=== PATIENT | male | born 1970 | race Two or more races ===

== ENCOUNTER 2024-03-04 23:43 | Emergency (ER) | payer MEDICARE, SELFPAY ==
[2024-03-04 23:47] VITALS: BP 138/84; PULSE 94; TEMP 36.4; O2SAT 100
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
--- NOTE | 2024-03-05 00:27 | CT_ITS ---
The [address] [address] Patient Name: TRAMAINE JOY MRN: [id number] date: 1970 Sex: M Assigned Patient Location: ER Current Patient Location: ER Accession/Order Number: [id number] Exam Date: 03/05/2024 01:45 Report Date: 03/05/2024 01:23 At the request of: ESME SIMPSON Procedure: CT lumbar spine wo con EXAM: CT lumbar spine wo con HISTORY: pain/fall COMPARISON: None. TECHNIQUE: Unenhanced CT imaging of the lumbar spine. This CT exam was performed using one or more of the following dose reduction techniques: Automated exposure control, adjustment of the mA and/or KV according to patient size, or use of iterative reconstruction technique. Unless otherwise stated, incidental findings do not require dedicated follow-up imaging. FINDINGS: The lumbar vertebrae are normal in height and alignment. There is no fracture. The facet joints are aligned bilaterally. The intervertebral disc spaces are preserved bilaterally. CT/CT lumbar spine wo con IMPRESSION: No acute abnormality. Electronically authenticated by: DESIREE NORRIS Date: 03/05/2024 01:23
--- NOTE | 2024-03-05 00:27 | CT_ITS ---
The [address] [address] Patient Name: TRAMAINE JOY MRN: [id number] date: 1970 Sex: M Assigned Patient Location: ER Current Patient Location: .[facility] Accession/Order Number: [id number] Exam Date: 03/05/2024 01:45 Report Date: 03/05/2024 01:21 At the request of: ESME SIMPSON Procedure: CT cervical spine wo con CT cervical spine wo con 03/05/2024 12:45 AM CDT: History: pain Neck Pain Comparison: None. Technique: Unenhanced CT imaging of the cervical spine. This CT exam was performed using one or more of the following dose reduction techniques: Automated exposure control, adjustment of the mA and/or KV according to patient size, or use of iterative reconstruction technique. Findings: The cervical vertebral bodies maintain normal height and alignment. There is no fracture or dislocation. The prevertebral soft tissues and predental space are normal. The facet joints are aligned bilaterally. The atlantooccipital articulation is normal bilaterally. There is multilevel degenerative disc disease of the cervical spine. CT/CT cervical spine wo con Impression: 1. No acute abnormality of the cervical spine. Electronically authenticated by: DESIREE NORRIS Date: 03/05/2024 01:21
[2024-03-05] MEDS: MAGNESIUM SULFATE IN WATER 2 GM/50 ML PREMIX IV (01:04)
[2024-03-05] MEDS: METHYLPREDNISOLONE SOD SUCC PF 125 MG/2 ML VIAL IVP (01:07)
[2024-03-05] MEDS: ORPHENADRINE 60 MG/ 2 ML VIAL IV (01:07)
[2024-03-05 01:21] LABS: Basophils Absolute Auto 0.1 10^3/uL (0.0-0.1); Basophils Percent Auto 0.6 % (0.2-2.0); Eosinophils Absolute Auto 0.1 10^3/uL (0.0-0.7); Eosinophils Percent Auto 1.6 % (0.9-7.0); Hematocrit 40.1 % (42.0-54.0); Hemoglobin 13.4 g/dL (14.0-18.0); Immature Granulocytes Abs Auto 0.02 10^3/uL (0.00-0.03); Immature Granulocytes Pct Auto 0.3 % (0.0-0.5); Lymphocytes Absolute Auto 2.7 10^3/uL (1.2-3.8); Lymphocytes Percent Auto 34.2 % (20.5-60.0); Mean Corpuscular HGB Conc 33.4 g/dL (29.9-35.2); Mean Corpuscular Volume 89.9 fL (80.0-94.0); Monocytes Absolute Auto 0.6 10^3/uL (0.3-0.8); Monocytes Percent Auto 7.3 % (1.7-12.0); Neutrophils Absolute Auto 4.4 10^3/uL (1.4-6.5); Platelet Count 302 10^3/uL (150-450); Red Blood Count 4.46 10^6/uL (4.70-6.10); Red Cell Distribution Width 12.3 % (11.0-15.0); White Blood Count 7.9 10^3/uL (4.0-11.0)
[2024-03-05 01:26] LABS: Erythrocyte Sedimentation Rate 22 mm/hr (<=20)
[2024-03-05 01:32] LABS: Anion Gap 13.2; BUN Creatinine Ratio 11.1; C Reactive Protein <0.50 mg/dL (<=0.50); Carbon Dioxide 27.2 mmol/L (21.0-32.0); Chloride 103 mmol/L (98-107); Estimated GFR (African America >60 (>=60); Estimated GFR (Non-African Ame >60 (>=60); Glucose 104 mg/dL (74-106); Potassium 3.4 mmol/L (3.5-5.1); Sodium 140 mmol/L (136-145)
[2024-03-05 01:44] VITALS: PULSE 88
[2024-03-05 02:30] VITALS: BP 137/87; PULSE 78; O2SAT 97
== END 2024-03-05 02:30 | disposition home or self-care (01) ==
PROVIDERS: Emergency Provider Internal Medicine; PCP Family Medicine
DX: S16.1XXA Strain of muscle, fascia and tendon at neck level, initial encounter (principal); S39.012A Strain of muscle, fascia and tendon of lower back, initial encounter; W19.XXXA Unspecified fall, initial encounter
CPT/HCPCS: 36415; 72125; 72131; 80048; 85025; 85652; 86140; 96365; 96375; 99285; J2919

== ENCOUNTER 2024-03-08 15:54 | Emergency (ER) | payer MEDICARE, SELFPAY ==
[2024-03-08 15:56] VITALS: BP 135/92; PULSE 99; TEMP 37.2; O2SAT 100; BMI 30.6
--- NOTE | 2024-03-08 15:57 | CT_ITS ---
The [address] [address] Patient Name: TRAMAINE JOY MRN: [id number] date: 1970 Sex: M Assigned Patient Location: ER Current Patient Location: ER Accession/Order Number: [id number] Exam Date: 03/08/2024 16:40 Report Date: 03/08/2024 17:13 At the request of: NATTY DE SOUZA Procedure: CT head/brain wo con EXAM: CT head/brain wo con HISTORY: Altered mental status. TECHNIQUE: Axial CT scans through the head were obtained without IV contrast administration. Dose reduction techniques were achieved by using: automated exposure control and/or adjustment of mA and /or kV according to patient size and/or the use of an iterative reconstruction technique. COMPARISON: None. FINDINGS: The cerebral hemispheres have normal white and neves matter and corticomedullary differentiation. To the limit of CT, the posterior fossa appears unremarkable. The ventricular system and cortical sulci are normal for the patient's age. No area of abnormal mass-effect or edema or intracranial hemorrhage. The visualized orbits show no abnormal mass. The visualized paranasal sinuses show no air-fluid level. Mastoid air cells are clear. CT/CT head/brain wo con IMPRESSION: No acute intracranial process. Electronically authenticated by: NICOLAS BABB Date: 03/08/2024 17:13
--- NOTE | 2024-03-08 15:57 | ECG_ITS ---
The [facility] Test Date: 2024-03-08 Pat Name: TRAMAINE JOY Department: Room: - Gender: Male Membership Administrator: : 1970 Requested By: MAISHA WALTER Order Number: [id number] Reading MD: ALESHA MICHELLE Measurements Intervals [place] Rate: 89 P: 55 CO: 138 QRS: 96 QRSD: 88 T: 65 QT: 346 QTc: 393 Interpretive Statements 1100 Sinus rhythm 7102 Moderate right axis deviation 9110 normal ECG Compared to ECG 01/19/2017 15:17:40 No significant changes Electronically Signed On 03-13-2024 9:45:53 EDT by ALESHA MICHELLE
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
[2024-03-08] MEDS: 0.9 % SODIUM CHLORIDE 1,000 ML 999 ML IV (16:21)
--- OUTSIDE RECORDS SUMMARY | 2024-03-08 16:23 | XMS_ITS | CCD ---
Author Organization [facility] [employer] [facility] [employer] [employer] Care Team Providers Care [employer] English Teacher Name Role Phone OLE MCCRAY Unavailable Unavail able REJI FRANKLIN Unavailable Unavailable DIMITRIOS MEDINA Unavailable Unavailable MAISHA WALTER Attending Unavailable MAISHA WALTER Admitting Unavailable DR IRMA PETERSEN Admitting Unavailable MAISHA WALTER Primary Care Unavailable DR IRMA PETERSEN Attending Unavailable Allergies Allergy Classification Reported Allergen(s) Allergy Type Date of Onset Reaction(s) Facility (1 source) Seasonal allergy; Translations: [SEASONAL ALLERGIES] Propensity to adverse reactions (disorder) [facility] Problems Active Problems Problem Classification Problem Date Documented Da te Episodic/Chronic Gastrointestinal hemorrhage (1 source) Hemorrhage of anus and rectum; Translations: [Hemorrhage of anus and rectum] Onset: 07-07-2018 Episodic Other nervous system disorders (1 source) Other chronic pain; Translations: [OTHER CHRONIC PAIN] Onset: 06-17-2020 Chronic Past or Other Problems Problem Classification Problem Date Documented Da te Episodic/Chronic Spondylosis; intervertebral disc disorders; other back problems (4 sources) Dorsalgia, unspecified; Translations: [DORSALGIA UNSPECIFIED] Onset: 05-29-2020 Episodic Results Test Name Value Interpretation Reference Range [facility] HNO ID: [id number] thor: Virginia (Rn) SALIMA Martinezervice: Care ManagementAuthor Type: Registered NurseType: Care Mgt Progress NoteFiled: 07/10/2018 10:01 AMNote Text:CARE MANAGEMENT: ASSESSMENT AND DISCHARGE PLANSERVICE DATE: 07/10/2018SERVICE TIME: 9:56 AMPRIMARY CARE PHYSICIAN:SHIRA Romerohone: [phone] STATUS: InpatientMEDICAL:Patient/Represe ntative Stated Goals:To have reduction in symptomsTo return home to life as it wasHealth Insurance: MEDICARE A AND BNoneHealth Issues Impacting Discharge Plan: Chronic bowel issuesLast Admission Date: Previous admit date: 05/01/2017Is this Within the Past 30 days? NoAdvance Directive:Current Advance Directive: NoneCare [facility] Psychiatrist Attempted to Assist with AD Completion: YesAction: Education Provided;Patient UnwillingHealth Literacy:1. How often do you need to have someone help you when you readinstructions, pamphlets, or other written material from your doctor orpharmacy? Never - 12. How confident are you filling out medical forms by yourself? Extremely- 1If Patient scores > 3 on either question, the following interventions wereput into place:Patient did not score > 3FUNCTIONAL AND COGNITIVE/BEHAVIORALPRIOR TO ADMISSION:Baseline Mental Status: Alert AND Oriented, Person, Place , Time andSituationFunctional Status: IndependentDoes Patient Currently Receive Any Community Services or Home Care? NoneEquipment Prior to Admission: NoneHas the Patient Been in a Halfway Facility in the Past 30 days? NoSOCIAL:Living Arrangement: HomeLives With: Mother and FatherFinancial Resources: DisabledPrimary Contact: Extended Emergency Contact InformationPrimary Emergency Contact: Micky Joyddress: [address] [place] [address] [facility] Xngcvdfl: MotherSupportive: YesOther Important Patient Contacts: NoneCaregiver Assessment:Caregiver is ready, willing and able to meet the patient's needs asrecommended by the inter-professional team? No Caregiver NeededPatient's transition needs and plan for meeting these needs: yesDoes the patient have an acute stroke diagnosis, or has the patient had astroke during this admission? NoMedication Adherence:Pt reports he doesn't take any prescription medicationsAre you interested in bedside delivery of your medications? YesFood Concerns:In the Last Month, Have You had Trouble Getting Food? No trouble gettingfoodDuring the Last Month, Have You Worried Whether Your Food Would Run OutBefore You Had Enough Money to Buy More? NoIs the Patient Psychosocially Complex? NoASSESSMENT AND PLAN:Medical Needs: NonePsychosocial Needs: NoneFREEDOM OF CHOICE EXPLAINED:N/APOTENTIAL TRANSITION PLANSNo Services IndicatedPt from home independently. No needs anticipated.Multidisciplinary rounds occurred this AM.SIGNATURE: Virginia Martinez RN PATIENT NAME: Tramaine Joy JRDATE: July 10, 2018 : 9:55 AM PAGER/CONTACT #: [phone] Normal [facility] CBC and Differentialon 07-10 Abs Baso 0.04 k/uL Normal <0.11 [facility] Abs Motley 0.58 k/uL Normal <0.87 [facility] Abs Neut 3.61 k/uL Normal 1.45-7.50 [facility] Absolute nRBC <0.01 Normal <0.01 [facility] Basophils/100 WBC Auto (Bld) 0.5 % Normal [facility] DTYPE Auto Diff Normal [facility] Eosinophils Auto #/vol (Bld) 0.19 10*3/uL Normal <0.46 [facility] Eosinophils/100 WBC Auto (Bld) 2.6 % Normal [facility] Erythrocyte distribution width Auto Ratio (RBC) 12.3 % Normal 11.5-15.0 [facility] Hematocrit Auto Volume Fraction (Bld) 39.9 % Normal 39.0-51.0 [facility] Hemoglobin mass conc (Bld) 14.0 g/dL Normal 13.0-17.0 [facility] Lymphocytes Auto #/vol (Bld) 2.86 10*3/uL Normal 1.00-4.00 [facility] Lymphocytes/100 WBC Auto (Bld) 39.2 % Normal [facility] MCH Auto Entitic mass (RBC) 31.0 pG Normal 26.0-34.0 [facility] MCHC Auto mass conc (RBC) 35.1 g/dL Normal 30.5-36.0 [facility] MCV Auto Entitic volume (RBC) 88.3 fL Normal 80.0-100.0 [facility] Monocytes/100 WBC Auto (Bld) 8.0 % Normal [facility] Neutrophils/100 WBC Auto (Bld) 49.7 % Normal [facility] NRBCs 0.0 /100 WBC Normal 0 [facility] Platelet mean volume Auto Entitic volume (Bld) 10.3 fL Normal 9.0-12.7 [facility] Platelets Auto #/vol (Bld) 297 10*3/uL Normal 150-400 [facility] RBC Auto #/vol (Bld) 4.52 10*6/uL Normal 4.20-6.00 [facility] WBC Auto #/vol (Bld) 7.29 10*3/uL Normal 3.70-11.00 [facility] CNDSon 07-10-2018 CNDS HNO ID: [id number] thor: Con[place] ([place]) WaiteService: [facility] MedicineAuthor Type: Physician AssistantType: Discharge SummariesFiled: 07/10/2018 1:42 PMNote Text: Attestation signed by Dimitrios Medina at 07/11/2018 12:[address] PMAgree.Dimitrios Medina, [facility] ARROWeptember 2017 12:40 PM DISCHARGE SUMMARYPATIENT NAME: Tramaine Joy JR ADMISSION DATE: 07/07/2018MRN: [id number] DISCHARGE DATE: 07/10/2018Attending Physician: Dimitrios Medina Code Status: Not on fileHighest Readmission Risk Score: 11 The 30 day readmissions risk score is derived from an internallyvalidated risk model which evaluates patient level characteristics,utilization history, medication orders and lab results up until the day ofdischarge. Patients with a score of 40 or above are considered highestrisk for readmission. Specific patient level drivers will be listed at thebottom of the summary.Reason for Hospitalization: GI bleedDiagnosis: Principal Problem (Resolved): Rectal bleedActive Problems: * No active hospital problems. *Hospital Course as Described to the Patient:You were admitted for GI bleed. You presented with blood in your stools.Testing for infectious sources in your stool were negative. Yourhemoglobin levels were monitored and dropped slightly, but not to asignificant level. Once the bleeding slowed down, your hemoglobin returnedto your baseline level. You were treated with Protonix, an acid reducingmedication, in case the source of bleeding was from your upper GI tract.You were evaluated by Gastroenterology who felt you were clear fordischarge and they will call you to schedule a follow up appointment. Youwill be prescribed a short course of Protonix. It is recommended todiscontinue Advil PM, as this can irritate the lining in your stomach.Transitions of Care Critical Issues:SPECIALIST FOLLOW-UP: Colorectal surgery, GIKEY MEDICATION CHANGES: Protonix 40 mg daily x 2 weeksLABS AND PROCEDURES PENDING AT DISCHARGE: Test Results Not Yet Availablefrom This Hospitalization: Please Review atYour Follow Up Appointment None No pending results.Additional Provider to Provider Information:GI Bleed-Patient with hx of diverticular perforation in 2014 with colostomy thenileostomy s/p reversal in 05/02presented after having multiple dark redloose stools with clots. He was started on Protonix IV and referred to obsunit. CBC showed slight drop from his baseline at 14 to ~12. Vitalsremained stable. C. Diff and Enteric bacterial panel negative. He wasevaluated by GI. Bleeding and loose stools began to slow down and he wasstarted on GI soft diet which he tolerated. GI recommended to follow upwith his colorectal surgeon for further evaluation and possiblycolonoscopy. He will also be contacted to f/u with GI and Colorectalsurgery. He was prescribed Protonix on discharge. Advised to discontinueAdvil PM which he had been taking nightly.Operations During Hospitalization: NoneProcedures During Hospitalization: No procedures performedConsulting Teams During Hospitalization:Treatment Team:Attending Provider: Dimitrios Walker GradyConsulting: Bashir IssaConsulting: Osmar Mendez BladesConsulting: Reji Campos Condition @ Discharge: StableDischarge Disposition: Home/Self CareDischarge Physical Exam:VITAL SIGNS: BP 131/79 Pulse 86 Temp 36.7 ?C (98.1 ?F) (Oral) Resp 16 Ht 167.6 cm (5' 6 ) Wt 79.1 kg (174 lb 6.1 oz) SpO2 97% BMI 28.15 kg/m?GENERAL: Alert, no distress, cooperativeSKIN: Skin color, texture, turgor normal. No rashes or lesions.HEAD/SINUSES: Atraumatic, normocephalic.EYES: PERRLA, EOMIOROPHARYNX: Lips, mucosa, and tongue normal. Teeth and gums normal.Oropharynx normal.LUNGS: Lungs clear to auscultation, Good diaphragmatic excursionCARDIAC: Normal S1 and S2; no rubs, murmurs, or gallopsABDOMEN: Abdomen soft, non-tender, BS normal, No masses or organomegalyEXTREMITIES: Extremities normal, no deformities, edema, clubbing or skindiscoloration. Good capillary refill., No ulcersNEURO: Grossly normal cognition, motor function, and cranial nervesIII-XII, Sensation grossly intact.PULSES: 2+ radial, 2+ dorsalis pedisInformation Provided to Patient: d/c instructionsDiet: Resume pre-hospital dietActivity: Resume pre-hospital activityWound/Surgical Site Care:ALLERGIESAllergen Reactions- Seasonal Allergies CoughDischarge Medications: Current Discharge Medication ListSTART taking these medicationspantoprazole DR (PROTONIX) 40 mgTake 40 mg by mouth once daily.Qty: 14 tablet Refills: 0CONTINUE these medications which have NOT CHANGEDdicyclomine (BENTYL) 20 mgTake 20 mg by mouth three times daily as needed (abdominal pain).Qty: 30 tablet Refills: 0acetaminophen (TYLENOL) 325-650 mgTake 325-650 mg by mouth every 4 hours as needed.Refills: 0Future Appointments:No future appointments.Follow Up Appointments Follow-Up Appointment With: You will be contacted for a follow up appointment with GI. When: In:Appointments for Next 45 Days NoneThe patient's risk for 30-day readmission is determined using thefollowing contributing factors:Pt variables contributing to increased readmission risk: 14 Most Recent BUN Result 8.8 First Resulted Calcium During Admission 5 Active Medication Orders 1 Previous ED Visit (6 mos.)? 1 Number of Previous ED Visits (6 mos.) 1 Insurance - Medicare 1 History of AnemiaTIME OF CARE: Discharge Management: I personally spent greater than 30minutes involved in the discharge management of this patient.SIGNATURE: Yael Bach PA-C PATIENT NAME: Tramaine Joy JRDATE: July 10, 2018 : 10:20 AM PAGER/CONTACT #: [phone] [facility] NURSING PROGon 07-10-2018 Protein mass conc HNO ID: [id number] thor: Millicent (Rn) Malika, RNService: (none)Author Type: Registered NurseType: Nursing Progress NoteFiled: 07/10/2018 10:44 AMNote Text: Nursing Progress NotePatient Name: Tramaine Joy JRMRN: [id number] [id number] Daily Note: Estefani HARTMANN MULTIMEDIA PROGRAMMER called to check on pt, update provided, pttolerating diet well but would like to have BM prior to d/c. OK to d/c tohome per GI and f/u with GI/colorectal sx.This note was completed by: Millicent Daly RN [facility] PLAN OF CAREon 07-10-2018 PLAN OF CARE HNO ID: [id number] thor: Mirela Abbasi (Explosive Man)Service: (none)Author Type: TechnicianType: Plan of CareFiled: 07/10/2018 3:16 PMNote Text:PHARMACY BEDSIDE DELIVERY SERVICEPatient Name: Tramaine Joy JRMRN: [id number] marked outpatient medications were Filled at: [place] and delivered tothe patient's bedside to patientMedication ListSTART taking these medicationsX pantoprazole DR 40 mg tabletCommonly known as: PROTONIXTake 1 tablet by mouth once daily.CONTINUE taking these medicationsacetaminophen 325 mg tabletCommonly known as: TYLENOLTake 1-2 tablets by mouth every 4 hours as needed.dicyclomine 20 mg tabletCommonly known as: BENTYLTake 1 tablet by mouth three times daily as needed (abdominal pain).You might also be taking other medications not listed above. If you havequestions about any of your other medications, talk to the person whoprescribed them or your Primary Care Provider.Mirela Abbasi ([employer])P[facility]ER: [facility] 3:16 PM [facility] PLAN OF CARE HNO ID: [id number] thor: Mirela Abbasi ([employer])Service: (none)Author Type: TechnicianType: Plan of CareFiled: 07/10/2018 12:05 PMNote Text:Pharmacy Discharge Medication Service:This patient has elected to receive their discharge prescriptions throughthe [facility]. Theprescriptions are currently being processed. A follow-up note will beentered once the prescriptions have been filled and delivered to thepatient. Please contact me with any questions or updates to the patient'sdischarge medications.Mirela Abbasi ([employer])DCT Contact Info: [facility] PLAN OF CARE HNO ID: [id number] thor: Mirela Abbasi ([employer])Service: (none)Author Type: TechnicianType: Plan of CareFiled: 07/10/2018 12:05 PMNote Text:CLEANER HOUSEKEEPING BEDSIDE DELIVERY SURVEY1. Patient to use [facility] Bedside Delivery - YES2. If fax, patient would like us to fax prescriptions to Pharmacy ofchoice a. Pharmacy: b. Location: c. Phone:3. Insurance card on file - YES4. Credit card for payment - NO [facility] CASE MGT INIT [facility] 2017 CASE MGT INIT [facility] HNO ID: [id number]: Lou (Rn) SALIMA Ivyervice: Care ManagementAuthor Type: Registered NurseType: Care Mgt Initial AssessmentFiled: 07/09/2018 12:02 PMNote Text:CARE MANAGEMENT: ASSESSMENT AND DISCHARGE PLANSERVICE DATE: 07/09/2018SERVICE TIME: 11:39 [facility]:Leeann Romerone: [phone] longer sees above, they didn't see eye to eye and parted waysADMISSION STATUS: InpatientMEDICAL:Patient/Represe ntative Stated Goals:To have reduction in symptomsTo return home to life as it wasHealth 2Insurance: MEDICARE A AND BAmerican Family InsuranceHealth Issues Impacting Discharge Plan: NoneLast Admission Date: Previous admit date: 05/01/2017Is this Within the Past 30 days? NoAdvance Directive:Current Advance Directive: NoneCare Prison Psychiatrist Attempted to Assist with AD Completion: YesAction: Other: See Comment (declined any information)Health Literacy:1. How often do you need to have someone help you when you readinstructions, pamphlets, or other written material from your doctor orpharmacy? Never - 12. How confident are you filling out medical forms by yourself? Extremely- 1If Patient scores > 3 on either question, the following interventions wereput into place:Patient did not score > 3FUNCTIONAL AND COGNITIVE/BEHAVIORALPRIOR TO ADMISSION:Baseline Mental Status: Alert AND Oriented, Person, Place , Time andSituationFunctional Status: Independent with all ADLsDoes Patient Currently Receive Any Community Services or Home Care? NoneEquipment Prior to Admission: NoneHas the Patient Been in a Halfway Facility in the Past 30 days? NoSOCIAL:Living Arrangement: Home 4 steps to enter ran homeLives With: Parent(s) and granddaughterFinancial Resources: DisabledPrimary Contact: Extended Emergency Contact InformationPrimary Emergency Contact: Micky Joyddress: [address] [place] [address] [facility] Azytamyu: MotherSupportive: YesOther Important Patient Contacts: NoneCaregiver Assessment:Caregiver is ready, willing and able to meet the patient's needs asrecommended by the inter-professional team? No Caregiver NeededPatient's transition needs and plan for meeting these needs: needs a newPCP for follow up, declined offer to assist with securing a follow upappt, states he prefers to see someone in [place]. Admits he's beendepressed from being in and out of the hospital and SNF that when hefinally got home he didn't care about follow up care. Verbalizesunderstanding of importance of preventative care.Does the patient have an acute stroke diagnosis, or has the patient had astroke during this admission? NoMedication Adherence:I am convinced of the importance of my prescription medication: Agreecompletely - 0I worry that my prescription medication will do more harm than good to meDisagree completely - 0I feel financially burdened by my awy-dc-swdrft expenses for myprescription medication: Disagree completely - 0Patient is categorized as low risk < 2Are you interested in bedside delivery of your medications? YesFood Concerns:In the Last Month, Have You had Trouble Getting Food? No trouble gettingfoodDuring the Last Month, Have You Worried Whether Your Food Would Run OutBefore You Had Enough Money to Buy More? NoIs the Patient Psychosocially Complex? NoASSESSMENT AND PLAN:Medical Needs: NonePsychosocial Needs: None Pt self reports he's been depressed, affect isflatFREEDOM OF CHOICE EXPLAINED:N/APOTENTIAL TRANSITION PLANSNo Services IndicatedAssessment completed with pt, explained my role in transitional careplanning. Pt reports he's been slowly recovering from ileostomy closureJuly 2017, hasn't started driving again. States he is independent withADLs and denies any DC needs at this time. States his mother issupportive and will pick him up when discharged. Care Management willfollow and assist should any DC needs arise.SIGNATURE: Lou Ivy RN PATIENT NAME: Tramaine Joy JRDATE: July 09, 2018 : 11:38 AM PAGER/CONTACT #: [phone] Normal [facility] CBC and Differentialon 07-09 Abs Baso 0.04 k/uL Normal <0.11 [facility] Abs Motley 0.48 k/uL Normal <0.87 [facility] Abs Neut 3.36 k/uL Normal 1.45-7.50 [facility] Absolute nRBC <0.01 Normal <0.01 [facility] Basophils/100 WBC Auto (Bld) 0.6 % Normal [facility] DTYPE Auto Diff Normal [facility] Eosinophils Auto #/vol (Bld) 0.13 10*3/uL Normal <0.46 [facility] Eosinophils/100 WBC Auto (Bld) 2.0 % Normal [facility] Erythrocyte distribution width Auto Ratio (RBC) 12.2 % Normal 11.5-15.0 [facility] Hematocrit Auto Volume Fraction (Bld) 36.7 % Low 39.0-51.0 [facility] Hemoglobin mass conc (Bld) 12.7 g/dL Low 13.0-17.0 [facility] Lymphocytes Auto #/vol (Bld) 2.59 10*3/uL Normal 1.00-4.00 [facility] Lymphocytes/100 WBC Auto (Bld) 39.2 % Normal [facility] MCH Auto Entitic mass (RBC) 30.5 pG Normal 26.0-34.0 [facility] MCHC Auto mass conc (RBC) 34.6 g/dL Normal 30.5-36.0 [facility] MCV Auto Entitic volume (RBC) 88.0 fL Normal 80.0-100.0 [facility] Monocytes/100 WBC Auto (Bld) 7.3 % Normal [facility] Neutrophils/100 WBC Auto (Bld) 50.9 % Normal [facility] NRBCs 0.0 /100 WBC Normal 0 [facility] Platelet mean volume Auto Entitic volume (Bld) 9.7 fL Normal 9.0-12.7 [facility] Platelets Auto #/vol (Bld) 273 10*3/uL Normal 150-400 [facility] RBC Auto #/vol (Bld) 4.17 10*6/uL Low 4.20-6.00 [facility] WBC Auto #/vol (Bld) 6.61 10*3/uL Normal 3.70-11.00 [facility] Abs Baso 0.03 k/uL Normal <0.11 [facility] Abs Motley 0.46 k/uL Normal <0.87 [facility] Abs Neut 3.64 k/uL Normal 1.45-7.50 [facility] Absolute nRBC <0.01 Normal <0.01 [facility] Basophils/100 WBC Auto (Bld) 0.4 % Normal [facility] DTYPE Auto Diff Normal [facility] Eosinophils Auto #/vol (Bld) 0.07 10*3/uL Normal <0.46 [facility] Eosinophils/100 WBC Auto (Bld) 1.0 % Normal [facility] Erythrocyte distribution width Auto Ratio (RBC) 12.2 % Normal 11.5-15.0 [facility] Hematocrit Auto Volume Fraction (Bld) 36.2 % Low 39.0-51.0 [facility] Hemoglobin mass conc (Bld) 12.8 g/dL Low 13.0-17.0 [facility] Lymphocytes Auto #/vol (Bld) 2.53 10*3/uL Normal 1.00-4.00 [facility] Lymphocytes/100 WBC Auto (Bld) 37.5 % Normal [facility] MCH Auto Entitic mass (RBC) 30.8 pG Normal 26.0-34.0 [facility] MCHC Auto mass conc (RBC) 35.4 g/dL Normal 30.5-36.0 [facility] MCV Auto Entitic volume (RBC) 87.0 fL Normal 80.0-100.0 [facility] Monocytes/100 WBC Auto (Bld) 6.8 % Normal [facility] Neutrophils/100 WBC Auto (Bld) 54.3 % Normal [facility] NRBCs 0.0 /100 WBC Normal 0 [facility] Platelet mean volume Auto Entitic volume (Bld) 9.5 fL Normal 9.0-12.7 [facility] Platelets Auto #/vol (Bld) 273 10*3/uL Normal 150-400 [facility] RBC Auto #/vol (Bld) 4.16 10*6/uL Low 4.20-6.00 [facility] WBC Auto #/vol (Bld) 6.75 10*3/uL Normal 3.70-11.00 [facility] CONSULT PROGon 07-09-2018 Protein mass conc HNO ID: [id number] thor: Carmen Quinonesrvice: GastroenterologyAuthor Type: Nurse PractitionerType: Consult Progress NoteFiled: 07/09/2018 3:19 PMNote Text:CONSULT PROGRESS NOTESSERVICE DATE: 07/09/2018SERVICE TIME: 3:10 PMCONSULTING SERVICE: GIASSESSMENT AND PLANC.diff negative. Stool cx pending.Hgb stable. No bleeding.Start GIS diet.If does well overnight may be d/c in am.Colonoscopy can be arranged on otpt basis. Previous anastomotic dilationwas performed in december,-? Need to repeat. Patient [place] He can f/u with us and this can be arranged or hecan GI [place] to [place].SUBJECTIVEINTERVAL HPI: No GI complaints. States overall feels better. No furtherdiarrhea.MEDICATIONS:[facility] medications:0.9% NaCl 3-5 mL 3-5 mL INTRAVENOUS q 12 Hondansetron 4 mg tab(s) (ZOFRAN) 4 mg ORAL q 6 H PRNondansetron (PF) 4 mg injection (ZOFRAN) 4 mg INTRAVENOUS q 6 H PRNpantoprazole 40 mg injection (PROTONIX) 40 mg INTRAVENOUS DAILY (6 AM)traZODone 50 mg tab(s) (DESYREL) 50 mg ORAL HS PRNOBJECTIVEPHYSICAL EXAM:Patient Vitals for the past 24 hrs: BP Temp Temp src Pulse Resp SpO2 Uhtoao40/23/18 1155 129/87 36.6 ?C (97.9 ?F) Oral 86 16 97 % -07/09/18 0731 119/76 36.6 ?C (97.9 ?F) Oral 97 16 97 % -07/09/18 0427 126/82 36.8 ?C (98.2 ?F) Oral 79 16 96 % 78.2 kg (172 lb 6.4oz)07/08/18 2325 122/87 37 ?C (98.6 ?F) Oral 89 16 95 % -07/08/18 1955 144/83 36.8 ?C (98.2 ?F) Oral 76 16 96 % -07/08/18 1609 144/88 37 ?C (98.6 ?F) Oral 84 16 97 % -PHYSICAL EXAMINATION:Lungs: Lungs clear to auscultation. No wheezing, rhonchi, ralesHeart: RRR without murmur, gallop, or rubs. No ectopyAbdomen: Abdomen soft, non-tender. Bowel sounds normal. No masses,organomegalyDATA:Diagnost ic tests reviewed for today's visit:Most recent labs and imaging results.CBC:Recent Labs 754WBC 6.61RBC 4.17*HB 12.7*HCT 36.7*PLT 273MCV 88.0MCH 30.5MPV 9.7CMP: No results for input(s): NA, K, CHLOR, CO2, BUN, CREAT, GLUC, TPROT,CA, MG, ALBUMIN, TBILI, ALKPHOS, ALT, AST, ANION in the last 24 hours.Liver Function, Amylase, Lipase: No results for input(s): TPROT, ALB, ALT,AST, ALKPHOS, TBILI, AMYLASE, LIPASE, LACTATE in the last 24 hours.SIGNATURE: Carmen Lui APRN.MULTIMEDIA PROGRAMMER PATIENT NAME: Tramaine Joy JRDATE: July 09, 2018 : 3:10 PM PAGER: [phone] [facility] NURSING PROGon 07-09-2018 Protein mass conc HNO ID: [id number] thor: Maria E Walker (Rn) Darvin, RNService: NursingAuthor Type: Registered NurseType: Nursing Progress NoteFiled: 07/09/2018 7:06 AMNote Text: Nursing Progress NotePatient Name: Tramaine Joy JRMRN: [id number] [id number] Pt with episodes of elevated heart rate when ambulating to bathroom. Nofurther episodes of bloody stools. Rested on and off during the night.This note was completed by: Maria E Boston RN [facility] PROGRESSon 07-09-2018 Protein mass conc HNO ID: [id number] thor: Jovana Wang (Pa)ervice: Hospital MedicineAuthor Type: Physician AssistantType: Progress NotesFiled: 07/09/2018 10:06 AMNote Text:[facility] MEDICINEPROGRESS NOTESERVICE DATE: 07/09/2018SERVICE TIME: 10:03 AMHospital Medicine/Primary Attending: STANLEY Mendoza-CNIGHT AND WEEKEND COVERAGE:[facility] pager [phone] HPI: 48 year old male seen in f/u for rectal bleed. The patientstates he had 2-3 more bloody bowel movements overnight. He states thatthey were smaller than yesterday. He states he did not get much sleepovernight. He denies any N/V/D.MEDICATIONS: ReviewedObjectivePHYSICAL EXAM:BP 119/76 Pulse 97 Temp (Src) 97.9 (Oral) Resp 16 Ht 5' 6 (1.68m) Wt 172 lb 6.4 oz (78.2kg) SpO2 97% BMI 27.84 kg/(m2).Physical Exam PerformedGeneral: Pleasant and cooperative maleHEENT: Conjunctiva clear, mucous membranes moist.CV: S1 and S2 clear and crisp no murmurs, gallops or rubs.Lungs: CTA b/l no wheezes rhonich or rales.Abdomen: BS active x 4 quadrants. Non distended. Soft. Non tender. Norebound tenderness or gaurding.Neuro: Oriented x 3. Good historian. Cranial Nerves II-XII grossly intact.Skin: No visible rashes. No diaphoresis.Extremities: No cyanosis or clubbing. No edema. DP and Radial pulses 2+Lines, Drains, and Airways Line Peripheral 07/07/18 1559 Left Arm 20 Gauge 1 dayReviewed lines, drains, AND airways. Need to be continued IV accessDATA:Diagnostic tests reviewed for today's visit:Most recent labs and imaging results.Assessment/PlanPrincipal Problem: Rectal bleed POA: Yes Assessment AND Plan:Patient continues to have dark red loose stools which started morning of07/07, now continues to have clots.CBC improved, no drop in H/H today.History of diverticular perforation in 2014 with colostomy then ileostomys/p reversal in 05/02 but does not followHe does have history of hemorrhoids but never had this bloodily bowelmovements beforeEnteric bacterial panel pendingC.Diff negativeGI consulted will await further recommendations.Resolved Problems: * No resolved hospital problems. *Medication and Non-Pharmacologic VTE Prophylaxis/Bmyvzavaenwapw72/21/ 18 1800 pneumatic compression stockings ([place]07/07/18 1800 activity - [place]VTE Prophylaxis: VTE prophylaxis appropriateDisposition: HomePlan of care discussed with: Attending, Patient and RNSIGNATURE: Jovana Guillermo PA-C PATIENT NAME: Tramaine Joy JRDATE: July 09, 2018 : 10:03 AM PAGER/CONTACT #: [phone] etx [id number] Normal [facility] C difficile PCRon 07-08-2018 C difficile PCR Negative Normal [facility] Comment on above: Performed By: #### C DPCR, STLPCR ####[facility] [place], [place] [phone] CBC and Differentialon 07-08 Abs Baso 0.04 k/uL Normal <0.11 [facility] Abs Motley 0.44 k/uL Normal <0.87 [facility] Abs Neut 2.85 k/uL Normal 1.45-7.50 [facility] Absolute nRBC <0.01 Normal <0.01 [facility] Basophils/100 WBC Auto (Bld) 0.7 % Normal [facility] DTYPE Auto Diff Normal [facility] Eosinophils Auto #/vol (Bld) 0.11 10*3/uL Normal <0.46 [facility] Eosinophils/100 WBC Auto (Bld) 2.0 % Normal [facility] Erythrocyte distribution width Auto Ratio (RBC) 12.4 % Normal 11.5-15.0 [facility] Hematocrit Auto Volume Fraction (Bld) 35.4 % Low 39.0-51.0 [facility] Hemoglobin mass conc (Bld) 12.4 g/dL Low 13.0-17.0 [facility] Lymphocytes Auto #/vol (Bld) 2.19 10*3/uL Normal 1.00-4.00 [facility] Lymphocytes/100 WBC Auto (Bld) 38.8 % Normal [facility] MCH Auto Entitic mass (RBC) 30.8 pG Normal 26.0-34.0 [facility] MCHC Auto mass conc (RBC) 35.0 g/dL Normal 30.5-36.0 [facility] MCV Auto Entitic volume (RBC) 87.8 fL Normal 80.0-100.0 [facility] Monocytes/100 WBC Auto (Bld) 7.8 % Normal [facility] Neutrophils/100 WBC Auto (Bld) 50.7 % Normal [facility] NRBCs 0.0 /100 WBC Normal 0 [facility] Platelet mean volume Auto Entitic volume (Bld) 9.8 fL Normal 9.0-12.7 [facility] Platelets Auto #/vol (Bld) 265 10*3/uL Normal 150-400 [facility] RBC Auto #/vol (Bld) 4.03 10*6/uL Low 4.20-6.00 [facility] WBC Auto #/vol (Bld) 5.64 10*3/uL Normal 3.70-11.00 [facility] Abs Baso 0.05 k/uL Normal <0.11 [facility] Abs Motley 0.49 k/uL Normal <0.87 [facility] Abs Neut 3.24 k/uL Normal 1.45-7.50 [facility] Absolute nRBC <0.01 Normal <0.01 [facility] Basophils/100 WBC Auto (Bld) 0.7 % Normal [facility] DTYPE Auto Diff Normal [facility] Eosinophils Auto #/vol (Bld) 0.13 10*3/uL Normal <0.46 [facility] Eosinophils/100 WBC Auto (Bld) 1.9 % Normal [facility] Erythrocyte distribution width Auto Ratio (RBC) 12.4 % Normal 11.5-15.0 [facility] Hematocrit Auto Volume Fraction (Bld) 34.5 % Low 39.0-51.0 [facility] Hemoglobin mass conc (Bld) 12.2 g/dL Low 13.0-17.0 [facility] Lymphocytes Auto #/vol (Bld) 2.90 10*3/uL Normal 1.00-4.00 [facility] Lymphocytes/100 WBC Auto (Bld) 42.5 % Normal [facility] MCH Auto Entitic mass (RBC) 30.8 pG Normal 26.0-34.0 [facility] MCHC Auto mass conc (RBC) 35.4 g/dL Normal 30.5-36.0 [facility] MCV Auto Entitic volume (RBC) 87.1 fL Normal 80.0-100.0 [facility] Monocytes/100 WBC Auto (Bld) 7.2 % Normal [facility] Neutrophils/100 WBC Auto (Bld) 47.7 % Normal [facility] NRBCs 0.0 /100 WBC Normal 0 [facility] Platelet mean volume Auto Entitic volume (Bld) 9.7 fL Normal 9.0-12.7 [facility] Platelets Auto #/vol (Bld) 262 10*3/uL Normal 150-400 [facility] RBC Auto #/vol (Bld) 3.96 10*6/uL Low 4.20-6.00 [facility] WBC Auto #/vol (Bld) 6.82 10*3/uL Normal 3.70-11.00 [facility] Abs Baso 0.03 k/uL Normal <0.11 [facility] Abs Motley 0.48 k/uL Normal <0.87 [facility] Abs Neut 4.39 k/uL Normal 1.45-7.50 [facility] Absolute nRBC <0.01 Normal <0.01 [facility] Basophils/100 WBC Auto (Bld) 0.4 % Normal [facility] DTYPE Auto Diff Normal [facility] Eosinophils Auto #/vol (Bld) 0.06 10*3/uL Normal <0.46 [facility] Eosinophils/100 WBC Auto (Bld) 0.8 % Normal [facility] Erythrocyte distribution width Auto Ratio (RBC) 12.5 % Normal 11.5-15.0 [facility] Hematocrit Auto Volume Fraction (Bld) 36.6 % Low 39.0-51.0 [facility] Hemoglobin mass conc (Bld) 13.0 g/dL Normal 13.0-17.0 [facility] Lymphocytes Auto #/vol (Bld) 2.76 10*3/uL Normal 1.00-4.00 [facility] Lymphocytes/100 WBC Auto (Bld) 35.7 % Normal [facility] MCH Auto Entitic mass (RBC) 31.3 pG Normal 26.0-34.0 [facility] MCHC Auto mass conc (RBC) 35.5 g/dL Normal 30.5-36.0 [facility] MCV Auto Entitic volume (RBC) 88.2 fL Normal 80.0-100.0 [facility] Monocytes/100 WBC Auto (Bld) 6.2 % Normal [facility] Neutrophils/100 WBC Auto (Bld) 56.9 % Normal [facility] NRBCs 0.0 /100 WBC Normal 0 [facility] Platelet mean volume Auto Entitic volume (Bld) 9.9 fL Normal 9.0-12.7 [facility] Platelets Auto #/vol (Bld) 286 10*3/uL Normal 150-400 [facility] RBC Auto #/vol (Bld) 4.15 10*6/uL Low 4.20-6.00 [facility] WBC Auto #/vol (Bld) 7.74 10*3/uL Normal 3.70-11.00 [facility] CONSULTon 07-08-2018 CONSULT HNO ID: [id number] thor: Reji Rosservice: GastroenterologyAuthor Type: PhysicianType: ConsultsFiled: 07/08/2018 1:48 PMNote Text:CONSULT: GASTROENTEROLOGYSERVICESERVICE DATE: 07/08/2018SERVICE TIME: 8:30AMREASON FOR CONSULT: RECTAL BLEEDINGREQUESTING PHYSICIAN: DR. GUTIERREZDIGNITY HEALTH ARIZONA SPECIALTY HOSPITALAutumn CARE PHYSICIAN: Felipe Sanders, PINKYubjectiveMr. 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 Reportseating greasy fried chicken from the day prior to presentation. Yesterdaymorning he started having loose stools that was maroon/dark brown incolor. Patient wasn't sure. No abd pain. No fever, no nausea or vomitingIn ED he had few episodes of dark maroon stools and per the nurse thatthere was what appeared to be blood clots in in the stool.Pt denies any recent illness, fever, chills, dizziness, syncope, abdominalpain or urinary changes. Pt reports h/o hemorrhoids with blood streakedstool that resolve with topical cream, but never had dark red stools. Ptreports taking two advil PM daily for last 3-4 monthsFUNCTIONAL STATUS: IndependentPAST MEDICAL HISTORYDiagnosis Date- Abdominal hernia 12/02/2016- Bronchitis- Diverticulitis of both large and small intestine with perforation andabscess without bleeding 08/06/2016- Gastroesophageal reflux disease without esophagitis 12/02/2016- Ileostomy in place (HCC) 08/17/2016- Perforated sigmoid colon (HCC)PAST SURGICAL HISTORYProcedure Laterality Date- ILEOSTOMY HX- PAST SURGICAL HISTORY OF 2014 sigmoidectomy with reversal- PICC LINE INSERT/CONSULT 08/21/2016- PICC LINE INSERT/CONSULT 01/31/2017FAMILY HISTORYProblem Relation Age of Onset- None Mother- None Father- Breast Cancer Paternal Aunt 45 diedSocial HistorySubstance Use Topics- Smoking status: Former Smoker Packs/day: 0.50 Years: 1.00 Types: Cigarettes Quit date: 05/27/2016- Smokeless tobacco: Never Used- Alcohol use NoPrescriptions Prior to Admission:dicyclomine (BENTYL) 20 mg tablet Take 1 tablet by mouth three times dailyas needed (abdominal pain). Disp: 30 tablet Rfl: 0acetaminophen (TYLENOL) 325 mg tablet Take 1-2 tablets by mouth every 4hours as needed. Disp: Rfl: 0 Unknown at Unknown timeCurrent hospital medications:0.9% NaCl 3-5 mL 3-5 mL INTRAVENOUS q 12 HNaCl 0.9% iv infusion 75 mL/hr INTRAVENOUS CONTINUOUSondansetron 4 mg tab(s) (ZOFRAN) 4 mg ORAL q 6 H PRNondansetron (PF) 4 mg injection (ZOFRAN) 4 mg INTRAVENOUS q 6 H PRNpantoprazole 40 mg injection (PROTONIX) 40 mg INTRAVENOUS DAILY (6 AM)traZODone 50 mg tab(s) (DESYREL) 50 mg ORAL HS PRNAllergies As of Date: 07/07/2018Allergen Noted ReactionSEASONAL ALLERGIES 05/21/2016 CoughFully Assessed 07/07/2018COMPLETE REVIEW OF SYSTEMS:PAIN ASSESSMENT: Negative for pain, history of chronic pain, or currenttreatment for a chronic pain condition.GENERAL: No weight loss, malaise or feversHEENT: Negative for frequent or significant headaches, No changes inhearing or vision, no nose bleeds or other nasal problemsNECK: Negative for lumps, goiter, pain and significant neck swellingRESPIRATORY: Negative for cough, hemoptysis, wheezing, COPD, dyspnea orshortness of breathCARDIOVASCULAR: Negative for chest pain, leg swelling, hypertension, CHFor palpitationsGI: See HPIMUSCULOSKELETAL: Negative for joint pain or swelling, back pain or musclepainSKIN: Negative for lesions, rash, and itchingPSYCH: Negative for sleep disturbance, mood disorder and recentpsychosocial stressorsHEMATOLOGY/LYMPHOLOGY: Negative for prolonged bleeding, bruising easily orswollen nodesENDOCRINE: Negative for cold or heat intolerance, polyuria, polydipsia andgoiterNEURO: No history of headaches, syncope, paralysis, seizures or tremorsObjectivePHYSICAL EXAM:Physical Exam Performed:GENERAL: Alert, no distress, cooperativeSKIN: Skin color, texture, turgor normal. No rashes or lesions.EYES: PERRLA, EOMIEARS: External ears normal, canals clearNECK: No jugulovenous distention, SuppleLUNGS: Lungs clear to auscultation, Good diaphragmatic excursionCARDIAC: Normal S1 and S2; no rubs, murmurs, or gallopsABDOMEN: Abdomen soft, non-tender, BS normal, No masses or organomegalyEXTREMITIES: Normal exam of the extremitiesNEURO: NegativeBP 130/78 Pulse 89 Temp (Src) 98.1 (Oral) Resp 18 Ht 5' 6 (1.68m) Wt 170 lb (77.1kg) SpO2 98% BMI 27.45 kg/(m2).DATA:Diagnostic tests reviewed for today's visit:Most recent labs and imaging results.Impression/Recommendatio nsPrincipal Problem: Rectal bleed POA: Yes Patient with h/o diverticular perforation in 2014, s/p sigmoid resectionand diverting loop ileostomy in 2015 then revision in 12/31 with repair ofpara-stomal hermiaRectal exam today showed brown stoolHgb on admission was 14.3 on admissionWill send stool studies to r/o infectious etiology especially that allsymptoms started about 20 hours after eating outColonoscopy if symptoms persist with dropping H/HSIGNATURE: Reji Franklin MD PATIENT NAME: Tramaine Joy JRDATE: July 07, 2018 : 10:40 PM PAGER: Normal [facility] Enteric Bact Pnl PCRon 07-08 Campy jejun/coli DNA Not Detected Normal [facility] Comment on above: Performed By: #### C DPCR, STLPCR ####[address] [phone] Salmonella spp. DNA Not Detected Normal [facility] Comment on above: Performed By: #### C DPCR, STLPCR ####[place] [id number] [place], [place] [phone] Shiga toxin gene(s) Not Detected Normal [facility] Comment on above: Performed By: #### C DPCR, STLPCR ####[facility] [address] [place], [place] [phone] Shigella/EIEC DNA Not Detected Normal [facility] Comment on above: Performed By: #### C DPCR, STLPCR ####[place] [id number] [place], [place] [phone] NURSING PROGon 07-08-2018 Protein mass conc HNO ID: [id number] thor: Martine Espinoza) Dany, RNService: (none)Author Type: Registered NurseType: Nursing Progress NoteFiled: 07/08/2018 10:00 AMNote Text: Nursing Progress NotePatient Name: Tramaine Joy JRMRN: [id number] Location: [place] [id number] Daily Note: Patient seen by GI this am, exam performed, new ordersobtained for stool sample to be sent, is now on isolation to rule outC-Diff. Patient denies any pain, abdominal bowel sounds x4 present, ptdenies any nausea.This note was completed by: Martine Saenz RN [facility] PROGRESSon 07-08-2018 Protein mass conc HNO ID: [id number] thor: Jovana Rivera (Pa)nService: [facility] MedicineAuthor Type: Physician AssistantType: Progress NotesFiled: 07/08/2018 9:16 AMNote Text:RAPID OBSERVATION UNITPROGRESS NOTESERVICE DATE: 07/08/2018SERVICE TIME: 9:05 AMHospital Medicine/Primary Attending: STANLEY Mendoza-CNIGHT AND WEEKEND COVERAGE:[facility] pager [phone] HPI: 48 year old male seen in f/u for rectal bleeding. He stateshe has had several maroon colored stools with blood clots in them todayone at 4am and one at approx 830 am. He denies any N/V/abdominal pain,SOB, lightheadedness or dizziness.MEDICATIONS: ReviewedObjectivePHYSICAL EXAM:BP 128/82 Pulse 88 Temp (Src) 98.1 (Oral) Resp 20 Ht 5' 6 (1.68m) Wt 170 lb (77.1kg) SpO2 96% BMI 27.45 kg/(m2).Physical Exam PerformedGeneral: Pleasant and cooperative maleHEENT: Conjunctiva clear, mucous membranes moist.CV: S1 and S2 clear and crisp no murmurs, gallops or rubs.Lungs: CTA b/l no wheezes rhonich or rales.Abdomen: BS active x 4 quadrants. Non distended. Soft. Non tender. Norebound tenderness or gaurding.Neuro: Oriented x 3. Good historian. Cranial Nerves II-XII grossly intact.Skin: No visible rashes. No diaphoresis.Extremities: No cyanosis or clubbing. No edema. DP and Radial pulses 2+Lines, Drains, and Airways Line Peripheral 07/07/18 1559 Left Arm 20 Gauge less than 1 dayReviewed lines, drains, AND airways. Need to be continued IV accessDATA:Diagnostic tests reviewed for today's visit:Most recent labs and imaging results.Assessment/PlanPrincipal Problem: Rectal bleed POA: Yes Assessment AND Plan:Patient continues to have dark red loose stools which started morning of07/07, now continues to have clots.CBC stable, no drop in H/H.History of diverticular perforation in 2014 with colostomy then ileostomys/p reversal in 05/02 but does not followHe does have history of hemorrhoids but never had this bloodily bowelmovements beforeGI saw patient and ordered stool studies, CLD, and monitorResolved Problems: * No resolved hospital problems. *Medication and Non-Pharmacologic VTE Prophylaxis/Fwxqqsdporhrxq87/21/ 18 1800 pneumatic compression stockings ([place], [place])07/07/18 1800 activity - mobilize patient ([place])VTE Prophylaxis: VTE prophylaxis appropriateDisposition: HomePlan of care discussed with: Attending, Patient and RNSIGNATURE: Jovana Guillermo PA-C PATIENT NAME: Tramaine Joy JRDATE: July 08, 2018 : 9:05 AM PAGER/CONTACT #: [phone] etx [id number] Normal [facility] Basic Metabolic Panlon 07-07 Anion gap 3 molar conc 10 mmol/L Normal 9-18 [facility] Calcium mass conc 8.8 mg/dL Normal 8.6-10.0 [facility] Chloride molar conc 105 mmol/L Normal 97-105 [facility] CO2 molar conc 26 mmol/L Normal 22-30 [facility] Creatinine mass conc 0.89 mg/dL Normal 0.73-1.22 [facility] eGFR- Amer. >60 Normal [facility] GFR/1.73 sq M predicted among non-blacks MDRD vol rate/area (S/P/Bld) mL/min/{1.73_m2} Normal [facility] Comment on above: Result Comment: eGFR (Estimated GFR) Units of measure: mL/min/1.73 meters squaredeGFR is derived from the reexpressed MDRD Study equation using the following parameters: serum creatinine, age, gender and race. The creatinine assay has been calibrated to be traceable to IDMS.An eGFR <60 mL/min/1.73m2 for >3 months is consistent with chronic kidney disease. Refer to KDOQI guidelines for clinical interpretation.In patients with unstable renal function, e.g. those with acute kidney injury, the eGFR may not accurately reflect actual GFR. Glucose mass conc 93 mg/dL Normal 74-99 [facility] Comment on above: Result Comment: The [place] [employer] (ADA) provides guidance for cutoff values for fasting glucose and random glucose. The ADA defines fasting as no caloric intake for at least 8 hours. Fasting plasma glucose results between 100 to 125 mg/dL indicate increased risk for diabetes (prediabetes).Fasting plasma glucose results greater than or equal to 126 mg/dL meet the criteria for diagnosis of diabetes. In the absence of unequivocal hyperglycemia, results should be confirmed by repeat testing. In a patient with classic symptoms of hyperglycemia or hyperglycemic crisis, random plasma glucose results greater than or equal to 200 mg/dL meet the criteria for diagnosis of diabetes.Reference: Standards of Medical Care in Diabetes 2016, [place] [employer]. Diabetes Care. 2016.39(Suppl 1). Potassium molar conc 3.9 mmol/L Normal 3.7-5.1 [facility] Sodium molar conc 141 mmol/L Normal 136-144 [facility] Urea nitrogen mass conc 14 mg/dL Normal 9-24 [facility] CBC and Differentialon 07-07 Abs Baso 0.05 k/uL Normal <0.11 [facility] Abs Motley 0.39 k/uL Normal <0.87 [facility] Abs Neut 5.05 k/uL Normal 1.45-7.50 [facility] Absolute nRBC <0.01 Normal <0.01 [facility] Basophils/100 WBC Auto (Bld) 0.6 % Normal [facility] DTYPE Auto Diff Normal [facility] Eosinophils Auto #/vol (Bld) 0.05 10*3/uL Normal <0.46 [facility] Eosinophils/100 WBC Auto (Bld) 0.6 % Normal [facility] Erythrocyte distribution width Auto Ratio (RBC) 12.5 % Normal 11.5-15.0 [facility] Hematocrit Auto Volume Fraction (Bld) 38.6 % Low 39.0-51.0 [facility] Hemoglobin mass conc (Bld) 13.4 g/dL Normal 13.0-17.0 [facility] Lymphocytes Auto #/vol (Bld) 2.41 10*3/uL Normal 1.00-4.00 [facility] Lymphocytes/100 WBC Auto (Bld) 30.3 % Normal [facility] MCH Auto Entitic mass (RBC) 30.6 pG Normal 26.0-34.0 [facility] MCHC Auto mass conc (RBC) 34.7 g/dL Normal 30.5-36.0 [facility] MCV Auto Entitic volume (RBC) 88.1 fL Normal 80.0-100.0 [facility] Monocytes/100 WBC Auto (Bld) 4.9 % Normal [facility] Neutrophils/100 WBC Auto (Bld) 63.6 % Normal [facility] NRBCs 0.0 /100 WBC Normal 0 [facility] Platelet mean volume Auto Entitic volume (Bld) 9.8 fL Normal 9.0-12.7 [facility] Platelets Auto #/vol (Bld) 291 10*3/uL Normal 150-400 [facility] RBC Auto #/vol (Bld) 4.38 10*6/uL Normal 4.20-6.00 [facility] WBC Auto #/vol (Bld) 7.96 10*3/uL Normal 3.70-11.00 [facility] Abs Baso 0.04 k/uL Normal <0.11 [facility] Abs Motley 0.59 k/uL Normal <0.87 [facility] Abs Neut 6.14 k/uL Normal 1.45-7.50 [facility] Absolute nRBC <0.01 Normal <0.01 [facility] Basophils/100 WBC Auto (Bld) 0.4 % Normal [facility] DTYPE Auto Diff Normal [facility] Eosinophils Auto #/vol (Bld) 0.11 10*3/uL Normal <0.46 [facility] Eosinophils/100 WBC Auto (Bld) 1.1 % Normal [facility] Erythrocyte distribution width Auto Ratio (RBC) 12.5 % Normal 11.5-15.0 [facility] Hematocrit Auto Volume Fraction (Bld) 40.8 % Normal 39.0-51.0 [facility] Hemoglobin mass conc (Bld) 14.3 g/dL Normal 13.0-17.0 [facility] Lymphocytes Auto #/vol (Bld) 2.68 10*3/uL Normal 1.00-4.00 [facility] Lymphocytes/100 WBC Auto (Bld) 28.0 % Normal [facility] MCH Auto Entitic mass (RBC) 30.7 pG Normal 26.0-34.0 [facility] MCHC Auto mass conc (RBC) 35.0 g/dL Normal 30.5-36.0 [facility] MCV Auto Entitic volume (RBC) 87.6 fL Normal 80.0-100.0 [facility] Monocytes/100 WBC Auto (Bld) 6.2 % Normal [facility] Neutrophils/100 WBC Auto (Bld) 64.3 % Normal [facility] NRBCs 0.0 /100 WBC Normal 0 [facility] Platelet mean volume Auto Entitic volume (Bld) 9.7 fL Normal 9.0-12.7 [facility] Platelets Auto #/vol (Bld) 297 10*3/uL Normal 150-400 [facility] RBC Auto #/vol (Bld) 4.66 10*6/uL Normal 4.20-6.00 [facility] WBC Auto #/vol (Bld) 9.58 10*3/uL Normal 3.70-11.00 [facility] ED NOTEon 07-07-2018 ED NOTE HNO ID: [id number] thor: Bonita (Rn) SALIMA Crawleyervice: (none)Author Type: Registered NurseType: ED NotesFiled: 07/07/2018 5:37 PMNote Text:Pt transported to 4 W in stable condition. Pending admission discussedwith pt prior. Report given to RYLIE Blake. [facility] ED NOTE HNO ID: [id number] thor: Julieta Navas (Medic) Bj, MedicService: (none)Author Type: [employer] Remover and TechnicianType: ED NotesFiled: 07/07/2018 3:10 PMNote Text:Pt presents to ED with cc of blood and soft stool since this morning. Ptstates he has had dark red blood in the bowl and on the paper 3 times thismorning. Pt has had extensive abd surgeries in the past. Normal [facility] ED PROV NOTEon 07-07-2018 Protein mass conc HNO ID: [id number] thor: Paulina Lucas (Pa)e: Emergency MedicineAuthor Type: Physician AssistantType: ED Provider NotesFiled: 07/07/2018 5:48 PMNote Text: Attestation signed by Beck Bowers III, MD at 07/08/2018 3:47 PMAttending NoteI have personally performed a face to face assessment of the patient and havereviewed the PA/PREPARATION ROOM WORKER note. My yepez findings include:This is a 48-year-old female presents for complaints of blood in stool.Patient had gross, obvious blood in stool over the last 2 days. Here has markedly bloody stool coming out of hisileostomy. Given the appearance of stool and persistent bloody BMs in the ERand will be placed in observation for further evaluationSignature: Beck Bowers III, MDDate: 07/08/2018Time: 3:46 PM ED Provider NotePatient Name: Tramaine Joy JRMRN: [id number] DATE: 07/07/18HistoryPatient presents with:Rectal Bleeding: bright red blood in stool 3x since this morningPatient is 48-year-old male with history of diverticulitis (presulting insmall and large intestinal perforation with temporary ileostomy which wasreversed in 2016) who presents to the ED with concern for bloody stools.Patient states that starting this morning, he noted loose stools withgross red bleeding. He states that since his ileostomy reversal, he hashad loose stools but has never had blood in the stool in the past. Hedenies abdominal pain. Denies dizziness, weakness or syncope. Denies chestpain or shortness of breath. Denies nausea or vomiting. He is not on bloodthinners.PAST MEDICAL HISTORYDiagnosis Date- Abdominal hernia 12/02/2016- Bronchitis- Diverticulitis of both large and small intestine with perforation andabscess without bleeding 08/06/2016- Gastroesophageal reflux disease without esophagitis 12/02/2016- Ileostomy in place (HCC) 08/17/2016- Perforated sigmoid colon (HCC)PAST SURGICAL HISTORYProcedure Laterality Date- ILEOSTOMY HX- PAST SURGICAL HISTORY OF 2014 sigmoidectomy with reversal- PICC LINE INSERT/CONSULT 08/21/2016- PICC LINE INSERT/CONSULT 01/31/2017FAMILY HISTORYProblem Relation Age of Onset- None Mother- None Father- Breast Cancer Paternal Aunt 45 diedSocial HistorySocial History Main Topics- Smoking status: Former Smoker Packs/day: 0.50 Years: 1.00 Types: Cigarettes Quit date: 05/27/2016- Smokeless tobacco: Never Used- Alcohol use No- Drug use: No- Sexual activity: Not on fileALLERGIESAllergen Reactions- Seasonal Allergies CoughReview of SystemsConstitutional: Negative for activity change, appetite change, chills,fatigue and fever.HENT: Negative for congestion, sore throat and trouble swallowing.Eyes: Negative for photophobia and visual disturbance.Respiratory: Negative for cough, chest tightness, shortness of breath andwheezing.Cardiovascular: Negative for chest pain and palpitations.Gastrointestinal: Positive for blood in stool and diarrhea (chronic loosestools). Negative for abdominal distention, abdominal pain, constipation,nausea and vomiting.Genitourinary: Negative for dysuria, flank pain, frequency, hematuria andurgency.Musculoskeletal: Negative for arthralgias, back pain, myalgias, neck painand neck stiffness.Skin: Negative for color change, pallor and rash.Neurological: Negative for dizziness, syncope, weakness, light-headedness,numbness and headaches.Psychiatric/Behavioral : Negative for agitation, behavioral problems,confusion and decreased concentration.Physical ExamBP 123/82 Pulse 81 Temp (Src) 98.5 (Oral) Resp 18 Ht 5' 6 (1.68m) Wt 170 lb (77.1kg) SpO2 99% BMI 27.45 kg/(m2).Physical ExamConstitutional: He is oriented to person, place, and time. He appearswell-developed and well-nourished. No distress.HENT:Head: Normocephalic and atraumatic.Mouth/Throat: Oropharynx is clear and moist. No oropharyngeal exudate.Eyes: Pupils are equal, round, and reactive to light. Conjunctivae and EOMare normal.Neck: Normal range of motion. Neck supple.Cardiovascular: Normal rate, regular rhythm and intact distal pulses.No murmur heard.Pulmonary/Chest: Effort normal and breath sounds normal. No respiratorydistress. He has no wheezes. He has no rales.Abdominal: Soft. Bowel sounds are normal. He exhibits no distension. Thereis no tenderness. There is no rebound and no guarding.Genitourinary:Genitouri nary Comments: Stool is loose, dark red/black and grossly hemepositiveMusculoskeletal: Normal range of motion. He exhibits no edema ortenderness.Neurological: He is alert and oriented to person, place, and time. Nocranial nerve deficit.Skin: Skin is warm and dry. No rash noted. He is not diaphoretic. Noerythema.Psychiatric: He has a normal mood and affect. His behavior is normal.Judgment and thought content normal.Nursing note and vitals reviewed.Diagnostic TestingED Labs Ordered and ReviewedCBC + AUTO DIFF (AK,AV,EU,FV,HL,KATE,MM,SP)BASIC METABOLIC PANEL (AK,AV,EU,FV,HL,KATE,MM,SP)Procedu resED Course / Clinical ImpressionClinical Impressions as of Jul 07 1748Rectal y/o male presents to the ED d/t blood in stool starting this morning.Pt is afebrile and hemodynamically stable, well-appearing, non-toxic.Initial VS:BP 130/91 Pulse 89 Temp (Src) 98.2 (Oral) Resp 18 Ht 5' 6 (1.68m) Wt 170 lb (77.1kg) SpO2 98% BMI 27.45 kg/(m2).Vital signs were reviewed.Triage records were reviewed.Medical records were reviewed.Nursing notes were reviewed and incorporated.ED Course:Pt not given any medications while in the ED.Lab Results:CBC: unremarkableBMP: unremarkablePatient presents to the emergency department with concern for blood instool. He states that he has chronic loose stools since he had anileostomy reversal last year. He typically does not have blood in hisstool. Note that this morning he had 3-4 bowel movements which weregrossly bloody. No pain. Denies dizziness, weakness or syncope. Onphysical examination, he has no abdominal tenderness to palpation. Stoolis noted to be loose and dark red/black in color. only a small sample wasobtained in the ER. Labs are unremarkable including a stable HANDH.Patient is hemodynamically and clinically stable. Given the appearance ofhis stool and the amount of bleeding, I feel it is reasonable to admit thepatient to observation for serial hemoglobin monitoring. Pt expressesunderstanding and is agreeable with the plan for admission. Patient stableat admission.MDM / Disposition / PlanMDMThe patient was ADMITTED TO: [facility].Condition at time of disposition: stableSIGNATURE: STANLEY Gallardo-Marguerite Sheehan) Carr07/07/18 1747Paulina Navas (Stanley) Carr07/07/18 1748Beck Bowers III, MD07/08/18 1547 Normal [facility] HISTORY PHYSICALon 8 HISTORY PHYSICAL HNO ID: [id number] thor: Radha Morris) BarbService: Hospital MedicineAuthor Type: Nurse PractitionerType: HANDPFiled: 07/07/2018 6:56 PMNote Text:DEPARTMENT OF HOSPITAL MEDICINEHISTORY AND PHYSICAL EXAMSERVICE DATE: 07/07/2018SERVICE TIME: 5:53 PMPrimary Care Physician: Felipe Sanders MDNIGHT AND WEEKEND COVERAGE:SONIA pagerSubjectiveCHIEF COMPLAINT: Bloody stoolsHPI: This is a 48 year old male with PMH of diverticular perforation [id number], s/p colostomy then ileostomy with reversal in 05/02 who presents withone day of dark red stools. Reports eating greasy fried chicken last nightand having dark soft stools afterwards, and this morning continued to haveloose stools that were dark red. Reports three stools prior to coming inand two more in ED that were all dark red, some clots in ED. Pt denies anyrecent illness, fever, chills, dizziness, syncope, abdominal pain orurinary changes. Pt reports h/o hemorrhoids with blood streaked stool thatresolve with topical cream, but never had dark red stools. Pt reportstaking two advil PM daily for last 3-4 months, denies any other bloodthinners, NSAID use, or medications. Pt denies following with any surgicalor GI service since ileostomy reversal. Reports daily formed bowelmovements at baseline.In ED, CBC and CMP unremarkable. Vitals stable, HR 80s-90s. Stool + grossheme. No imaging done.PAST MEDICAL HISTORYDiagnosis Date- Abdominal hernia 12/02/2016- Bronchitis- Diverticulitis of both large and small intestine with perforation andabscess without bleeding 08/06/2016- Gastroesophageal reflux disease without esophagitis 12/02/2016- Ileostomy in place (HCC) 08/17/2016- Perforated sigmoid colon (HCC)PAST SURGICAL HISTORYProcedure Laterality Date- ILEOSTOMY HX- PAST SURGICAL HISTORY OF 2014 sigmoidectomy with reversal- PICC LINE INSERT/CONSULT 08/21/2016- PICC LINE INSERT/CONSULT 01/31/2017FAMILY HISTORYProblem Relation Age of Onset- None Mother- None Father- Breast Cancer Paternal Aunt 45 diedSocial HistorySubstance Use Topics- Smoking status: Former Smoker Packs/day: 0.50 Years: 1.00 Types: Cigarettes Quit date: 05/27/2016- Smokeless tobacco: Never Used- Alcohol use NoMEDICATIONS: Reviewed(Not in a hospital admission)ALLERGIESAllergen Reactions- Seasonal Allergies CoughREVIEW OF SYSTEM:GENERAL: No weight loss, malaise or feversHEENT: Negative for frequent or significant headaches, No changes inhearing or vision, no nose bleeds or other nasal problemsRESPIRATORY: Negative for cough, hemoptysis, wheezing, COPD, dyspnea orshortness of breathCARDIOVASCULAR: Negative for chest pain, leg swelling, hypertension, CHFor palpitationsGI: See HPIGU: No history of dysuria, frequency or incontinenceMUSCULOSKELETAL: Negative for joint pain or swelling, back pain or musclepainSKIN: Negative for lesions, rash, and itchingPSYCH: Negative for sleep disturbance, mood disorder and recentpsychosocial stressorsHEMATOLOGY/LYMPHOLOGY: Negative for prolonged bleeding, bruising easily orswollen nodesENDOCRINE: Negative for cold or heat intolerance, polyuria, polydipsia andgoiterNEURO: No history of headaches, syncope, paralysis, seizures or tremorsObjectivePHYSICAL EXAM:BP 123/82 Pulse 81 Temp (Src) 98.5 (Oral) Resp 18 Ht 5' 6 (1.68m) Wt 170 lb (77.1kg) SpO2 99% BMI 27.45 kg/(m2).Physical Exam Performed:GENERAL: Alert, no distress, cooperativeSKIN: Skin color, texture, turgor normal. No rashes or lesions.HEAD/SINUSES: No significant findingsBACK: Back symmetric, Normal curvature, No CVAT.LUNGS: Lungs clear to auscultation, Good diaphragmatic excursionCARDIAC: Normal S1 and S2; no rubs, murmurs, or gallopsABDOMEN: Abdomen soft, non-tender, BS normal, No masses or organomegaly.Multiple healed surgical scars.EXTREMITIES: Extremities normal, no deformities, edema, clubbing or skindiscoloration. Good capillary refill., No ulcersNEURO: Grossly normal cognition, motor function, and cranial nervesIII-XIIPULSES: 2+ radial, 2+ dorsalis pedisLines, Drains, and Airways Line Peripheral 07/07/18 1559 Left Arm 20 Gauge less than 1 dayReviewed lines, drains, AND airways. Need to be continued IV lineDATA:Diagnostic tests reviewed for today's visit:Most recent labs and imaging results.Assessment/PlanPrincipal Problem: Rectal bleed POA: Yes Assessment AND Plan:- Presents with dark red loose stools starting this morning, three priorto ED, and two more since coming in, now with visible clots. + gross hemein ED. Denies any recent illness, fever, chills, dizziness, syncope,abdominal pain or urinary changes.- CBC and CMP unremarkable. No imaging. HR stable in 80s-90s,normotensive.- History of diverticular perforation in 2014 with colostomy thenileostomy, s/p reversal in 05/02.- Does not follow with GI or surgery.- Endorses taking 2 advil PM nightly, no other blood thinners or NSAIDs.- Pt reports h/o hemorrhoids with blood streaked stool that resolve withtopical cream, but never had dark red stools.Plan:- IV hydration, clear liquid diet- IV protonix- Trend q8h CBC- Continuous telemetry- Will consult GI with any hemodynamic instability or worsening symptomsResolved Problems: * No resolved hospital problems. *Medication and Non-Pharmacologic VTE Prophylaxis/AnticoagulantsVTE Prophylaxis: VTE prophylaxis appropriateDisposition: HomePlan of care discussed with: Patient and RNSIGNATURE: Radha Eden APRN.MULTIMEDIA PROGRAMMER PATIENT NAME: Tramaine Joy JRDATE: July 07, 2018 : 5:49 PM PAGER/CONTACT #: [phone] [facility] NURSING PROGon 07-07-2018 Protein mass conc HNO ID: [id number] thor: Nohemi (Rylie) SALIMA Choudhuryervice: (none)Author Type: Registered NurseType: Nursing Progress NoteFiled: 07/07/2018 6:37 PMNote Text: Nursing Progress NotePatient Name: Tramaine Joy JRMRN: [id number] Location: [place] [id number] Daily Note:1806 Pt arrived from ED via cart. pt up with steady gait to bed. Pt toni/o x 3 with no c/o pain. LS clear. Abd soft BS hyperactive. No edema.Pt oriented to room and call light. Orders received and reviewed withpatient. Tele applied.This note was completed by: Nohemi Choudhury RN [facility] Type and Screenon 07-07-2018 ABO/RH(D) Positive [facility] Antibody Screen Negative [facility] Encounters Encounter Date Encounter Type Care Provider Facility Start: 06-30-[address] IRMA Abernathy ty:[facility] Start: 05-29-2020 End: 07-31-2020 ambulatory MAISHA WALTER Facility:[facility] Start: 07-07-2018 End: 07-10-2018 Evaluation and management of inpatient [facility] Payers Date Payer Category Payer Unknown [id number] 1970 Unknown [id number] 1960 Medicare [id number] Summary Purpose Family History No Family History Records FoundNo Family History Records Found Advance Directives No Advanced Directives Records FoundNo Advanced Directives Records Found Additional Source Comments (unrecognized sect ion and content) No Status Records FoundNo Status Records Found INFORMATION SOURCE (unrecogn ized section and content) DATE CREATED AUTHOR 08/09/2018 [facility] DATE CREATED AUTHOR AUTHOR'S CRISS AMEZCUA [facility]/26/2021 [facility]ORDS PERTAINING TO PATIENTS WHO ARE OR HAVE BEEN ENROLLED IN A CHEMICAL DEPENDENCY/SUBSTANCEABUSE PROGRAM, SOME INFORMATION MAY BE OMITTED. This clinical summary was aggregated from multiple sources. Caution should be exercised in using it in the provision of clinical care. This summary normalizes information from multiple sources, and as a consequence, information in this document may materially change the coding, format and clinical context of patient data. In addition, data may be omitted in some cases. CLINICAL DECISIONS SHOULD BE BASED ON THE PRIMARY CLINICAL RECORDS. [facility] [employer] [facility]. provides no warranty or guarantee of the accuracy or completeness of information in this document.
[2024-03-08 16:27] LABS: PCO2 VBG 47.4 mmHg (40.0-52.0); pH VBG 7.366 (7.330-7.430)
[2024-03-08 16:34] LABS: Basophils Percent Auto 0.4 % (0.2-2.0); Eosinophils Absolute Auto 0.1 10^3/uL (0.0-0.7); Eosinophils Percent Auto 1.1 % (0.9-7.0); Hematocrit 40.6 % (42.0-54.0); Hemoglobin 13.7 g/dL (14.0-18.0); Immature Granulocytes Abs Auto 0.01 10^3/uL (0.00-0.03); Immature Granulocytes Pct Auto 0.1 % (0.0-0.5); Lymphocytes Absolute Auto 2.1 10^3/uL (1.2-3.8); Lymphocytes Percent Auto 28.1 % (20.5-60.0); Mean Corpuscular HGB Conc 33.7 g/dL (29.9-35.2); Mean Corpuscular Hemoglobin 30.3 pg (25.9-34.0); Mean Corpuscular Volume 89.8 fL (80.0-94.0); Mean Platelet Volume 10.3 fL (9.5-13.5); Monocytes Absolute Auto 0.6 10^3/uL (0.3-0.8); Monocytes Percent Auto 8.1 % (1.7-12.0); Neutrophils Absolute Auto 4.6 10^3/uL (1.4-6.5); Neutrophils Percent Auto 62.2 % (43.0-75.0); Platelet Count 308 10^3/uL (150-450); Red Blood Count 4.52 10^6/uL (4.70-6.10); Red Cell Distribution Width 12.3 % (11.0-15.0); White Blood Count 7.4 10^3/uL (4.0-11.0)
[2024-03-08 16:42] LABS: Ammonia 18 umol/L (11-32)
[2024-03-08 16:45] LABS: Salicylate <2.8 mg/dL (<=19.9)
[2024-03-08 16:49] LABS: Alanine Aminotransferase 53 U/L (16-63); Albumin Globulin Ratio 1.1; Albumin Level 3.7 g/dL (3.4-5.0); Alkaline Phosphatase 62 U/L (46-116); Anion Gap 9.5; Aspartate Amino Transferase 45 U/L (15-37); BUN Creatinine Ratio 20.2; Bilirubin Total 0.7 mg/dL (0.2-1.0); Calcium 9.1 mg/dL (8.5-10.1); Chloride 104 mmol/L (98-107); Estimated GFR (African America >60 (>=60); Estimated GFR (Non-African Ame >60 (>=60); Globulin 3.3 g/dL; Glucose 83 mg/dL (74-106); Potassium 3.5 mmol/L (3.5-5.1); Sodium 138 mmol/L (136-145)
[2024-03-08 16:50] LABS: Acetaminophen <2.0 ug/mL (10.0-30.0)
[2024-03-08 16:57] LABS: Ethanol <3 mg/dL; Thyroid Stimulating Hormone 1.705 uIU/mL (0.358-3.740); Troponin I High Sensitivity 9.9 pg/mL (4.0-76.1)
[2024-03-08 17:56] LABS: Bilirubin Urine NEGATIVE (NEGATIVE); Blood Urine NEGATIVE (NEGATIVE); Clarity Urine CLEAR (CLEAR); Color Urine YELLOW (YELLOW); Glucose Urine UA NEGATIVE (NEGATIVE); Ketones Urine 15 mg/dL (NEGATIVE); Leukocyte Esterase Urine NEGATIVE (NEGATIVE); Nitrite Urine NEGATIVE (NEGATIVE); Protein Urine NEGATIVE (NEG/TRACE); Specific Gravity Urine 1.025 (1.005-1.025); Urine Microscopic Indicated NO; Urobilinogen Urine 0.2 EU/dL (0.2-1.0)
[2024-03-08 18:05] LABS: Amphetamine Screen Urine NEGATIVE (NEGATIVE); Barbiturates Screen Urine NEGATIVE (NEGATIVE); Benzodiazepines Screen Urine NEGATIVE (NEGATIVE); Buprenorphine Screen Urine NEGATIVE (NEGATIVE); Cannabinoid Screen Urine POSITIVE (NEGATIVE); Cocaine Screen Urine NEGATIVE (NEGATIVE); Methadone Screen Urine NEGATIVE (NEGATIVE); Methamphetamines Screen Urine NEGATIVE (NEGATIVE); Opiate Screen Urine NEGATIVE (NEGATIVE); Oxycodone Screen Urine NEGATIVE (NEGATIVE); Phencyclidine Screen Urine NEGATIVE (NEGATIVE); Tricyclic Antidepressant Urine NEGATIVE (NEGATIVE)
== END 2024-03-08 18:00 | disposition home or self-care (01) ==
PROVIDERS: Physician Assistant; Emergency Provider Emergency Medicine; PCP Family Medicine
DX: Z00.00 Encounter for general adult medical examination without abnormal findings (principal)
CPT/HCPCS: 36415; 70450; 80053; 80179; 80307; 80320; 80329; 81003; 82140; 82800; 84443; 84484; 85025; 93005; 96360; 99285